=== PATIENT | male | born 1955 | race Caucasian/White ===

== ENCOUNTER 2018-08-04 21:24 | Emergency (ER) | payer OTHER ==
--- NOTE | 2018-08-05 | EDM.PDOC ---
ED HPI GENERAL MEDICAL PROBLEM - General Chief Complaint: Upper Extremity Injury/Pain Stated Complaint: INJURED RIGHT ARM/KICKED BY A COW Time Seen by Provider: 08/04/18 21:56 - History of Present Illness INITIAL COMMENTS - FREE TEXT/NARRATIVE: 63-year-old male presents emergency room with a right arm injury. The patient was moving some cattle and one of them pushed the cattle gate pretty hard that slammed into his right arm causing some discomfort above and below his elbow. The patient has some significant discomfort with this. Right Upper Arm Pain Score (Numeric/FACES): 5 - Related Data Allergies Allergy/AdvReac Type Severity Reaction Status Date / Time Sulfa (Sulfonamide Allergy Rash Verified 08/04/18 21:34 Antibiotics) Home Meds: Home Meds ALPRAZolam [Alprazolam] 0.5 mg PO ASDIRECTED PRN 08/04/18 [History] FLUoxetine [PROzac] 20 mg PO DAILY 08/04/18 [History] Rosuvastatin [Crestor] 5 mg PO DAILY 08/04/18 [History] Past Medical History Psychiatric History: Reports: Anxiety - Past Surgical History HEENT Surgical History: Reports: Naso-Sinus Surgery Musculoskeletal Surgical History: Reports: Shoulder Surgery Social & Family History - Family History Family Medical History: Noncontributory - Tobacco Use Smoking Status *Q: Former Smoker Used Tobacco, but Quit: Yes Month/Year Tobacco Last Used: 1989 - Caffeine Use Caffeine Use: Reports: Coffee, Soda, Tea - Recreational Drug Use Recreational Drug Use: No Review of Systems - Review of Systems Review Of Systems: See Below Constitutional: Reports: No Symptoms Ears: Reports: No Symptoms Nose: Reports: No Symptoms Mouth/Throat: Reports: No Symptoms Respiratory: Reports: No Symptoms Cardiovascular: Reports: No Symptoms GI/Abdominal: Reports: No Symptoms ED EXAM, GENERAL - Physical Exam Exam: See Below Exam Limited By: Intoxication General Appearance: Alert, No Apparent Distress Head: Atraumatic, Normocephalic Neck: Normal Inspection, Supple, Non-Tender, Full Range of Motion Respiratory/Chest: No Respiratory Distress, Lungs Clear, Normal Breath Sounds, No Accessory Muscle Use, Chest Non-Tender Cardiovascular: Normal Peripheral Pulses, Regular Rate, Rhythm, No Edema, No Murmur Extremities: Other (Semination his right upper extremity shows no tenderness over the hand neurovascular status the digits is entirely within normal limits he has some discomfort in the forearm none in the wrist no snuffbox tenderness. The patient can reluctantly supinate and pronate his arm and fully flex and extend his elbow. He has some palpatory discomfort along the humerus but no deformity noted. Shoulder is nontender to palpation and shoulder range of motion appears to be fairly well intact) Course - Vital Signs Last Recorded V/S: Last Vital Signs Temp 37.2 C 08/04/18 21:30 Pulse 61 08/04/18 21:30 Resp 18 08/04/18 21:30 BP 143/87 H 08/04/18 21:30 Pulse Ox 95 08/04/18 21:30 - Orders/Labs/Meds Orders: Active Orders 24 hr Category Date Time Status Forearm 2V Rt [CR] Stat Exams 08/04/18 21:35 Taken Humerus Rt [CR] Stat Exams 08/04/18 21:35 Taken - Re-Assessments/Exams Free Text/Narrative Re-Assessment/Exam: 08/04/18 23:58 X-ray examination of the humerus and forearm is negative for acute fracture dislocation. Departure - Departure Time of Disposition: 23:59 Disposition: Home, Self-Care 01 Clinical Impression: Contusion of right arm - Discharge Information Referrals: Everardo Damon MD [Primary Care Provider] - Additional Instructions: Return to the emergency room with any questions problems worsening symptoms if you gets significant swelling or develop some numbness in your hand or forearm return for immediate reevaluation. For aches and pains Tylenol will work well follow directions on the bottle. Drink plenty of fluids - My Orders Last 24 Hours: My Active Orders 08/04/18 21:35 Forearm 2V Rt [CR] Stat Humerus Rt [CR] Stat - Assessment/Plan Last 24 Hours: My Active Orders 08/04/18 21:35 Forearm 2V Rt [CR] Stat Humerus Rt [CR] Stat
--- NOTE | 2018-08-06 06:35 | CR ---
Right humerus: Two views of the right humerus were obtained. Comparison: No prior humerus exam. No fracture or other acute abnormality. Inferior spurring is noted within the acromioclavicular joint. Incidental bone staple is noted within the scapula. Impression: 1. Incidental findings. Nothing acute is appreciated on two-view right humerus study. Diagnostic code #2
--- NOTE | 2018-08-06 06:35 | CR ---
Right forearm: Two views of the right forearm were obtained. Comparison: No prior forearm study. No fracture or other bony abnormality is identified. Mild soft tissue swelling is identified. Impression: 1. Mild soft tissue swelling. 2. No acute bony abnormality is identified on two-view right forearm study. Diagnostic code #2 I agree with preliminary report from [facility], finalized on 08/05/18, 12:25 AM Central Time
== END 2018-08-05 00:02 | disposition home or self-care (01) ==
LOC: JD.ED 21:24
DX: S40.021A Contusion of right upper arm, initial encounter (principal); Z87.891 Personal history of nicotine dependence; Z88.2 Allergy status to sulfonamides; X50.9XXA Other and unspecified overexertion or strenuous movements or postures, initial encounter
CPT/HCPCS: 73060-26-RT; 73060-RT; 73090-26-RT; 73090-RT; 99282; 99283-25

== ENCOUNTER 2021-07-20 21:33 | Emergency (ER) | payer MEDICARE, OTHER ==
[2021-07-20] MEDS ORDERED: Lidocaine 1% 10 ML MDV INJECT ONE (22:23)
[2021-07-20] MEDS ORDERED: Diphtheria,Pertussis(Acell),Tetanus Vaccine 0.5 ML Syringe IM ONE (22:23)
== END 2021-07-20 23:06 | disposition home or self-care (01) ==
LOC: JD.ED 21:33
DX: S61.012A Laceration without foreign body of left thumb without damage to nail, initial encounter (principal); Z88.2 Allergy status to sulfonamides; Z23 Encounter for immunization; W26.0XXA Contact with knife, initial encounter
CPT/HCPCS: 12001; 12011; 90471; 90715; 99282; 99282-25